=== PATIENT | female | born 2000 | race American Indian/Alaskan Native ===

== ENCOUNTER 2021-11-11 19:36 | Emergency (ER) | payer OTHER ==
[2021-11-11 19:43] VITALS: BP 146/74
--- NOTE | 2021-11-11 19:53 | Emergency Department Report ---
ED Extremity Problem HPI - General Chief complaint: Extremity Injury, Lower Stated complaint: TOE PAIN Source: patient Mode of arrival: Ambulatory Limitations: No Limitations - History of Present Illness Initial comments: 21-year-old female presents to the ED complaint of right great toe pain. 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 Patient states that a family member used a foreign object to expel the blister. Patient stated that her mother told her to come to the ER to have her toe evaluated. Discoloration noted to the right great toe without edema. nailbed intact. Patient states tender to touch. Patient ambulatory without any difficulty. No acute distress noted .no ill appearance noted Onset/Timin -: days(s) Location: right, toe Severity scale (0 -10): 6 Quality: aching Consistency: constant Improves with: nothing Worsens with: other (Touching or rubbing against any object) Associated Symptoms: denies other symptoms - Related Data Previous Rx's Medication Instructions Recorded Last Taken Type Ibuprofen [Motrin] 800 mg PO Q8HR PRN 15 Days #30 11/11/21 Unknown Rx tablet cephALEXin [Keflex] 500 mg PO Q12HR 7 Days #14 cap 11/11/21 Unknown Rx Allergies Allergy/AdvReac Type Severity Reaction Status Date / Time No Known Allergies Allergy Verified 11/11/21 19:43 ED Review of Systems ROS: Stated complaint: TOE PAIN Other details as noted in HPI Constitutional: denies: chills, fever Eyes: denies: eye pain, eye discharge, vision change ENT: denies: ear pain, throat pain Respiratory: denies: cough, shortness of breath, wheezing Cardiovascular: denies: chest pain, palpitations Endocrine: no symptoms reported Gastrointestinal: denies: abdominal pain, nausea, diarrhea Genitourinary: denies: urgency, dysuria, discharge Musculoskeletal: other (right toe pain). denies: back pain, joint swelling, arthralgia Skin: denies: rash, lesions Neurological: denies: headache, weakness, paresthesias Psychiatric: denies: anxiety, depression Hematological/Lymphatic: denies: easy bleeding, easy bruising ED Past Medical Hx - Medications Home Medications: Home Medications Medication Instructions Recorded Confirmed Last Taken Type Ibuprofen [Motrin] 800 mg PO Q8HR PRN 15 Days #30 11/11/21 Unknown Rx tablet cephALEXin [Keflex] 500 mg PO Q12HR 7 Days #14 cap 11/11/21 Unknown Rx ED Physical Exam - General Limitations: No Limitations General appearance: alert, in no apparent distress - Head Head exam: Present: atraumatic, normocephalic - Eye Eye exam: Present: normal appearance - ENT ENT exam: Present: mucous membranes moist - Neck Neck exam: Present: normal inspection - Respiratory Respiratory exam: Present: normal lung sounds bilaterally. Absent: respiratory distress - Cardiovascular Cardiovascular Exam: Present: regular rate, normal rhythm. Absent: systolic murmur, diastolic murmur, rubs, gallop - GI/Abdominal GI/Abdominal exam: Present: soft, normal bowel sounds - Extremities Exam Extremities exam: Present: normal inspection - Expanded Lower Extremity Exam Right Foot/Toe exam: Present: tenderness, dislocation Neuro vascular tendon exam: Present: no vascular compromise Gait: Positive: observed and normal - Back Exam Back exam: Present: normal inspection - Neurological Exam Neurological exam: Present: alert, oriented X3 - Psychiatric Psychiatric exam: Present: normal affect, normal mood - Skin Skin exam: Present: warm, dry, intact, normal color. Absent: rash ED Course Vital Signs 11/11/21 19:42 Temperature 98.5 F Pulse Rate 99 H Respiratory 18 Rate Blood Pressure 146/74 O2 Sat by Pulse 98 Oximetry ED Medical Decision Making - Medical Decision Making 21-year-old female presents to the ED complaint of right great toe pain x 3 days. 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 Patient states that a family member used a foreign object to expel the blister and drainage was noted. Patient stated that her mother told her to come to the ER to have her toe evaluated. Discoloration noted to the right great toe without edema. nailbed intact. Patient states tender to touch. Patient ambulatory without any difficulty. No acute distress noted .no ill appearance noted Right great toe noted purple-bluish discoloration noted with mild nonfluctuant tender mass near the nailbed. No incision drain due to no fluctuant. We will send patient home on Keflex and to follow-up with primary care doctor with if no improvement. Patient mother called on phone and discussed plan of care with patient and patient mother. Verbalized understanding. Critical care attestation.: If time is entered above; I have spent that time in minutes in the direct care of this critically ill patient, excluding procedure time. ED Disposition Clinical Impression: Paronychia due to ingrown nail Disposition: HOME / SELF CARE / HOMELESS Is pt being admited?: No Does the pt Need Aspirin: No Condition: Stable Instructions: Paronychia, [id number] Additional Instructions: Take medication as prescribed Do not probe any object into right great toe Follow-up with primary care doctor as needed Return to the ED for worsening symptom Prescriptions: cephALEXin [Keflex] 500 mg PO Q12HR 7 Days #14 cap Ibuprofen [Motrin] 800 mg PO Q8HR PRN 15 Days #30 tablet PRN Reason: Pain, Moderate (4-6) Time of Disposition: 20:02
== END 2021-11-12 04:51 | disposition home or self-care (01) ==
LOC: ED 19:36
DX: L03.031 Cellulitis of right toe (principal); Z79.899 Other long term (current) drug therapy
CPT/HCPCS: 99282